=== PATIENT | male | born 1955 | race American Indian/Alaskan Native ===

== ENCOUNTER 2017-05-05 13:31 | Emergency (ER) | payer OTHER ==
[2017-05-05] MEDS ORDERED: NACL 0.9% 1000 ML 1,000 ML ONE (14:00)
[2017-05-05] MEDS ORDERED: NACL 0.9% 1000 ML 2,000 ML IV ONE (14:02)
[2017-05-05 14:16] LABS: Mean Corpuscular HGB Conc 29 % (32-34); Mean Corpuscular Volume 88 fl (84-94); Platelet Count 199 K/mm3 (140-440); Red Blood Count 4.23 M/mm3 (3.65-5.03)
[2017-05-05 14:19] LABS: Hematocrit 37.2 % (35.5-45.6); Hemoglobin 10.8 gm/dl (11.8-15.2); Mean Corpuscular Hemoglobin 26 pg (28-32)
[2017-05-05 14:26] LABS: INR 1.45 (0.87-1.13)
[2017-05-05 14:27] LABS: Partial Thromboplastin Time 49.2 Sec. (24.2-36.6)
[2017-05-05] MEDS: ADRENALIN 8 MG in NACL 0.9% 250ML 242 ML IV SCH ×4 (14:28→15:14)
[2017-05-05] MEDS ORDERED: SODIUM BICARBONATE IV NR (14:34)
[2017-05-05] MEDS ORDERED: NACL 0.9% 1000 ML 1,000 ML IV ONE (14:34)
[2017-05-05 14:42] LABS: Creatine Kinase MB 1.5 ng/mL (0.0-4.0)
[2017-05-05 14:43] LABS: Albumin 2.6 g/dL (3.9-5); Calcium 9.6 mg/dL (8.4-10.2)
[2017-05-05 15:10] LABS: Basophils % (Manual) 0 % (0.0-1.8); Eosinophils % (Manual) 0 % (0.0-4.3); Total Cells Counted 100
[2017-05-05 15:11] LABS: Anisocytosis 1+; Hypochromasia 1+
[2017-05-05 15:12] LABS: Target Cells Few
[2017-05-05 15:18] LABS: Chol/HDL Ratio 4.52 %
[2017-05-05] MEDS ORDERED: ASPIRIN PR ONE (15:33)
--- NOTE | 2017-05-05 15:33 | Emergency Department Report ---
HPI - General Chief Complaint: Cardiac Arrest/CPR Time Seen by Provider: 05/05/17 14:02 - HPI HPI: The patient's is a 62-year-old male with a history of heart disease and pacemaker placement, who presents via EMS in cardiac arrest. Per EMS and family members, the patient was witnessed experiencing a syncopal episode. On EMS arrival the patient was found unresponsive in cardiac arrest, with nausea and rhythm. He received multiple rounds of ACLS medications and CPR in route to the ED. ED Review of Systems ROS: Stated complaint: CA Other details as noted in HPI Comment: Unobtainable due to pts medical conditions (patient unresponsive) Physical Exam - Physical Exam Physical Exam: Physical Exam: General: well-nourished, well-developed Head: Normocephalic, atraumatic Eyes: Pupils were fixed and dilated, unresponsive to light ENT: no tracheal deviation Neck: no appreciable carotid bruit or thrill Respiratory: Breath sounds equal with bagging/assisted ventilations Cardio: No distal pulses, extremities cold to touch Abdomen: soft abdomen, no obvious distention, no epigastric breath sounds with assisted ventilation Musc: No pitting edema Skin: No rash Neuro: Patient unresponsive to verbal or painful stimuli, no abnormal tonicity or posturing - Central Line Placement Right Femoral Consent Obtained: emergent situation Time Out Performed: Yes (1929) Patient Placed on Monitor/Pulse Ox: Yes MD Prep: mask, gown, gloves Central Line Prep: Chlorhexidine scrub Local Anesthesia Used: Lidocaine 2% Amount of Anesthesia Used (mls): 5 Ultrasound Used for Placement: Yes Central Line Lumen Inserted: triple Bloods Obtained for Lab: No Central Line Position: good blood return, all ports aspirated, flus, sutured in place with 2-0 Dressing Applied: Tegaderm Patient Tolerated Procedure: well, no complications Complications: none - Intubation Time Out Performed: No (emergent situation) Sedative: Etomidate Mg Given: 20 Paralytic: Succinylcholine Mg Given: 100 Laryngoscope: Kyaw Size: 4 ET Tube Size: 7.5 Tube Secured Depth (cm): 22 Tube Secured Location: teeth Tube Placement Confirmation: visualized tube passing t, equal breath sounds bilat, no breath sounds over epi, confirmation by capnometr Patient Tolerated Procedure: well, no complications Intubation Complications: none ED Medical Decision Making - Lab Data Result diagrams: 05/05/17 13:55 05/05/17 17:06 - Medical Decision Making The patient was seen and examined by myself. The patient is placed on a cardiac monitor technician and continuous pulse ox. On initial evaluation, the patient was found to be unresponsive in cardiac arrest. Initial monitor rhythm reveals asystole/PEA. IV access is established and the patient is given epinephrine and sodium bicarbonate. After multiple rounds of CPR and ACLS medications, the patient regained spontaneous circulation. EKG is obtained and reveals irregularly irregular narrow QRS complex rhythm. The patient experiences bradycardia and recurrence of cardiac arrest. The patient was placed on a epinephrine drip and a right femoral central line was placed. Multiple bedside assessments were performed to assess patient responsiveness to epinephrine drip. Lab results exhibited elevated creatinine 1.7, mildly elevated troponin of 0.054, and low pH of 7.08. CT scan the head is negative for acute intracranial hemorrhage or other acute process. The on-call hospitalist service was contacted. They agreed to admit the patient for further treatment and close monitoring. The ED admit order was placed. The patient was admitted in critical condition. Critical Care Time: Yes Critical care time in (mins) excluding proc time.: 35 Critical care attestation.: Due to the critical nature of this patients presentation, which necessitated multiple bedside assessments, manipulation and supportive measures to prevent further life threatening deterioration, I would like to bill for a total of 35 minutes of critical care time. This was exclusive of any separately billable procedures. Critical Care Time: 35 min ED Disposition Clinical Impression: Cardiac arrest, Acidosis, metabolic, Dehydration, WILY (acute kidney injury) Disposition: 09 OP ADMIT IP TO THIS HOSP Is pt being admited?: Yes Does the pt Need Aspirin: Yes Condition: Critical Referrals: PRIMARY CARE, [Primary Care Provider] - 3-5 Days Time of Disposition: 15:29
[2017-05-05 16:00] LABS: Bilirubin,Urine NEG (Negative); Blood,Urine NEG (Negative); Color,Urine Blue (Yellow); Mucus,Urine 3+ /HPF; Nitrite,Urine NEG (Negative); Protein,Urine <15 mg/dL mg/dL (Negative); Sperm,Urine 3+ /HPF (NP); Urobilinogen,Urine < 2.0 mg/dL (<2.0)
[2017-05-05 16:05] LABS: Amphetamine Screen,Urine PRESUMPTIVE NEGATIVE; Benzodiazepines Screen,Urine PRESUMPTIVE NEGATIVE; Cannabinoid Screen,Urine PRESUMPTIVE NEGATIVE; Cocaine Screen,Urine PRESUMPTIVE NEGATIVE; Methadone Screen,Urine PRESUMPTIVE NEGATIVE; Opiate Screen,Urine PRESUMPTIVE NEGATIVE
[2017-05-05] MEDS ORDERED: AMIDATE IV ONE ×2 (16:05→18:00)
[2017-05-05] MEDS ORDERED: QUELICIN IV ONE (16:05)
[2017-05-05] MEDS ORDERED: MILK OF MAGNESIA PO PRN (17:01)
[2017-05-05] MEDS ORDERED: PROVENTIL IH PRN (17:01)
[2017-05-05] MEDS ORDERED: ALUM-MAG HYDROX-SIMETH 200-200-20MG/5ML PO PRN (17:01)
[2017-05-05] MEDS ORDERED: DULCOLAX PR PRN (17:01)
[2017-05-05] MEDS ORDERED: SODIUM CHLORIDE FLUSH SYRINGE 10 ML IV PRN (17:06)
--- NOTE | 2017-05-05 17:08 | History and Physical Report ---
History of Present Illness Chief complaint: Unresponsive History of present illness: 62 Yo Male with CHF, CVA, Nicotine Dependence presents to ED for evaluation. Pt unresponsive and unable to provide history. Pt history taken from ED staff, and Pt daughter who is an employee at [employer]. As per daughter, pt was in his usual state of health until today. The patient experienced a witnessed syncopal episode as per family. Pt was unarousable. EMS was notified, and upon arrival the patient was found to be unresponsive and in cardiac arrest. Pt treated IAW ACLS protocol and was intubated and placed on vent support, and transported to [facility] for further care. Pt seen and evaluated in ED and subsequently experienced another episode of cardiac arrest, and was again treated IAW ACLS protocol, with return of perfusing rhythm. Pt started on pressor support, cardiology consulted. Pt admitted to ICU. Past History Past Medical History: heart failure, stroke, other (nicotine dependence) Past Surgical History: Other (ICD placement. ) Social history: , lives with family, smoking. denies: alcohol abuse, prescription drug abuse Family history: CAD, hypertension Medications and Allergies Allergies Allergy/AdvReac Type Severity Reaction Status Date / Time No Known Allergies Allergy Unverified 05/05/17 15:41 Active Meds: Active Medications Al Hydrox/Mg Hydrox/Simethicone (Alum-Mag Hydrox-Simeth 213-585-64tq/5ml) 30 ml PO Q4H PRN PRN Reason: Indigestion Albuterol (Proventil) 2.5 mg IH Q3HRT PRN PRN Reason: Shortness Of Breath Bisacodyl (Dulcolax) 10 mg [place] QDAY PRN PRN Reason: constipation unrelieved by MOM Epinephrine 8 mg/ Sodium (Chloride) 250 mls @ 3.75 mls/hr IV TITR SANDRA; 2 MCG/ MIN PRN Reason: Protocol Last Admin: 05/05/17 15:14 Dose: 6 mcg/min, 11.25 mls/hr Magnesium Hydroxide (Milk Of Magnesia) 30 ml PO Q4H PRN PRN Reason: Constipation Sodium Chloride (Sodium Chloride Flush Syringe 10 Ml) 10 ml IV PRN PRN PRN Reason: LINE FLUSH Review of Systems ROS unobtainable: due to mental status Exam - Constitutional Vitals: Temp Pulse Resp BP Pulse Ox 72 114/78 100 05/05/17 13:49 01/04/18 13:49 05/05/17 13:49 General appearance: Present: severe distress - EENT Eyes: Present: miosis - Neck Neck: Present: supple, normal ROM - Respiratory Respiratory effort: labored Respiratory: bilateral: diminished - Cardiovascular Heart Sounds: Present: S1 & S2. Absent: rub, click - Extremities Extremities: pulses symmetrical, No edema Extremity abnormal: edema Peripheral Pulses: within normal limits - Abdominal General gastrointestinal: Present: soft, non-tender, non-distended, normal bowel sounds Male genitourinary: Present: normal - Integumentary Integumentary: Present: clear, dry, clammy, decreased turgor - Musculoskeletal Musculoskeletal: generalized weakness - Psychiatric Psychiatric: no intact judgment & insight, no memory intact - Neurologic Neurologic: no gait normal Results - Labs CBC & Chem 7: 05/05/17 13:55 05/05/17 17:06 Labs: Abnormal lab results 05/05/17 05/05/17 05/05/17 Range/Units 13:55 13:55 13:55 Hgb 10.8 L (11.8-15.2) gm/dl MCH 26 L (28-32) pg MCHC 29 L (32-34) % RDW 22.0 H (13.2-15.2) % Seg Neuts % (Manual) 29.0 L (40.0-70.0) % Lymphocytes % (Manual) 62.0 H (13.4-35.0) % Monocytes % (Manual) 9.0 H (0.0-7.3) % Seg Neutrophils # Man 1.5 L (1.8-7.7) K/mm3 PT 18.4 H (12.2-14.9) Sec. INR 1.45 H (0.87-1.13) APTT 49.2 H (24.2-36.6) Sec. POC ABG pH (7.35-7.45) POC ABG pCO2 (35-45) POC ABG pO2 (80-105) Carbon Dioxide 19 L (22-30) mmol/L BUN 31 H (9-20) mg/dL Creatinine 1.7 H (0.8-1.5) mg/dL Glucose 135 H (75-100) mg/dL Lactic Acid (0.7-2.0) mmol/L AST 42 H (5-40) units/L Alkaline Phosphatase 137 H (35-129) units/L Troponin T 0.054 H (0.00-0.029) ng/mL Albumin 2.6 L (3.9-5) g/dL HDL Cholesterol 23 L (40-59) mg/dL Urine WBC (Auto) (0.0-6.0) /HPF 05/05/17 05/05/17 05/05/17 Range/Units 14:24 15:32 15:41 Hgb (11.8-15.2) gm/dl MCH (28-32) pg MCHC (32-34) % RDW (13.2-15.2) % Seg Neuts % (Manual) (40.0-70.0) % Lymphocytes % (Manual) (13.4-35.0) % Monocytes % (Manual) (0.0-7.3) % Seg Neutrophils # Man (1.8-7.7) K/mm3 PT (12.2-14.9) Sec. INR (0.87-1.13) APTT (24.2-36.6) Sec. POC ABG pH 7.080 L (7.35-7.45) POC ABG pCO2 47.2 H (35-45) POC ABG pO2 178 H (80-105) Carbon Dioxide (22-30) mmol/L BUN (9-20) mg/dL Creatinine (0.8-1.5) mg/dL Glucose (75-100) mg/dL Lactic Acid 11.10 H* (0.7-2.0) mmol/L AST (5-40) units/L Alkaline Phosphatase (35-129) units/L Troponin T (0.00-0.029) ng/mL Albumin (3.9-5) g/dL HDL Cholesterol (40-59) mg/dL Urine WBC (Auto) 36.0 H (0.0-6.0) /HPF Assessment and Plan - Patient Problems (1) Acute hypoxemic respiratory failure Current Visit: Yes Status: Acute Plan to address problem: Admit to ICU: Pt intubated, placed on vent support, wean vent as tolerated, supplemental oxygen, nebulizer therapy, daily SBT, sedation holiday daily, pulmonary toilet, pulmonary consulted. The high probability of a clinically significant, sudden or life threatening deterioration of the [cardiac, renal, pulmonary] system(s) required my full and direct attention, intervention and personal management. The aggregate critical care time was [65] minutes. This time is in addition to time spent performing reported procedures but includes the following: [x] Data Review and interpretation [x] Patient assessment and monitoring of vital signs [x] Documentation [x] Medication orders and management (2) Lactic acidosis Current Visit: Yes Status: Acute Plan to address problem: IVF resuscitation, supportive care, (3) ARF (acute renal failure) Current Visit: Yes Status: Acute Plan to address problem: monitor uop q shift, IVF resuscitation, repeat bmp, consider urine electrolytes if decreasing uop, or increasing creatnine. (4) CHF (congestive heart failure) Current Visit: Yes Status: Acute Qualifiers: Congestive heart failure type: systolic Congestive heart failure chronicity : acute on chronic Qualified Code(s): I50.23 - Acute on chronic systolic ( congestive) heart failure Plan to address problem: Cardiology consulted, Echo, CT chest, serial cardiac enzymes, ekg, telemetry monitoring, continue ionotropic support. (5) Cardiac arrest Current Visit: Yes Status: Acute Plan to address problem: S/P treatment with ACLS protocol, iv pressor support, (6) Anoxic brain damage syndrome Current Visit: Yes Status: Suspected Plan to address problem: CT head if/when medically more stable, neuro checks, supportive care, Apnea test if no improvement, and unable to wean from vent. (7) DVT prophylaxis Current Visit: Yes Status: Acute
[2017-05-05 17:33] LABS: Creatine Kinase MB 5.6 ng/mL (0.0-4.0)
[2017-05-05 17:34] LABS: BUN/Creatinine Ratio 19; Blood Urea Nitrogen 32 mg/dL (9-20); Calcium 8.7 mg/dL (8.4-10.2); Hemolysis Index 37
--- NOTE | 2017-05-05 17:58 | Cat Scan Report ---
FINAL REPORT EXAM: CT HEAD/BRAIN WO CON HISTORY: syncope, AMS TECHNIQUE: Standard unenhanced CT of the head at 5.0 millimeter axial increments PRIORS: None. FINDINGS: The ventricular system is normal in size and configuration. There is no evidence for parenchymal volume loss. Low-density in the posterior right frontal lobe is noted suggesting a prior area of infarct or small vessel ischemic changes. Smaller areas of low-density in the posterior right periventricular white matter are likely small vessel ischemic changes. There is no evidence for mass lesion, mass effect, midline shift, acute intracranial hemorrhage, or acute ischemia/ infarction. Visualized paranasal sinuses are clear. IMPRESSION: Small vessel ischemic changes. One of these areas could also represent a prior remote infarct in the posterior right frontal lobe. No acute intracranial process noted.
[2017-05-05] MEDS ORDERED: ADRENALIN ONE (18:00)
[2017-05-05] MEDS ORDERED: QUELICIN ONE (18:00)
[2017-05-05] MEDS ORDERED: SODIUM BICARBONATE IV ONE (18:00)
[2017-05-05] MEDS ORDERED: D50W (25GM) Syringe IV ONE (18:00)
[2017-05-05] MEDS ORDERED: MAGNESIUM SULFATE ONE (18:00)
[2017-05-05] MEDS ORDERED: CALCIUM CHLORIDE IV ONE (18:00)
--- NOTE | 2017-05-05 18:05 | Cat Scan Report ---
FINAL REPORT EXAM: CT CERVICAL SPINE WO CON HISTORY: syncope TECHNIQUE: Standard CT cervical spine obtained at 2.5 millimeter axial increments. Coronal and sagittal reconstruction was also performed. PRIORS: None. FINDINGS: The vertebral bodies are intact. There is no evidence for acute fracture. There is no evidence for paravertebral soft tissue swelling. Alignment is maintained. Mild degenerative disc changes to from C5 through C7 are noted. An endotracheal tube and nasogastric tube are located in the trachea and esophagus, respectively. IMPRESSION: No acute bony abnormality of the cervical spine. An endotracheal tube and nasogastric tube are located in the trachea and esophagus, respectively.
--- NOTE | 2017-05-05 18:19 | Cat Scan Report ---
FINAL REPORT EXAM: CT ANGIO CHEST HISTORY: respiratory failure TECHNIQUE: Enhanced CT of the chest at 2.5 mm axial intervals following a pulmonary embolism protocol. Coronal and sagittal imaging were also obtained. Coronal oblique MIP projections were obtained. Contrast: intravenous contrast given PRIORS: None. FINDINGS: An endotracheal tube terminates at the level of aortic arch. A nasogastric tube terminates within the stomach. A single lead left subclavian pacemaker terminates in the right ventricle. There is no evidence for pulmonary embolism in the main pulmonary artery, right and left pulmonary arteries or their major distributions. However, CT does not exclude distal pulmonary emboli. Extensive ground-glass opacities are noted diffusely throughout the upper lobes. There is a small patchy alveolar infiltrate in the right lower lobe posterior medially. Linear atelectasis in the left base medially is present. There is a bulla in the right apex consistent with underlying emphysema. No pneumothorax is seen. There is no evidence for mediastinal, hilar, or axillary adenopathy. There is global markedly enlargement of the heart. Pulmonary arteries are prominent bilaterally with the main pulmonary trunk measuring 3.9 cm in diameter. The aorta is upper limits normal in diameter with the ascending aorta measuring 4.0 x 4.0 cm. The descending thoracic aorta measures 3.6 x 3.6 cm. Images through the lung bases include the upper abdomen which show no abnormalities of the visualized abdominal viscera. Bony structures demonstrate acute rib fractures involving the anterior right 4th and 5th ribs. There are anterior left 3rd through 5th rib fractures. IMPRESSION: 1. no evidence for pulmonary embolism. 2. Marked global cardiomegaly. Mildly enlarged main pulmonary arteries which can be seen with pulmonary arterial hypertension. 3. Extensive ground-glass opacities throughout the upper lobes, likely inflammatory 4. Patchy infiltrates and atelectasis identified in the right lower lobe and left lower lobe 5. Numerous acute rib fractures involving multiple upper anterior ribs bilaterally.
--- NOTE | 2017-05-05 18:21 | Consultation ---
History of Present Illness Consult date: 05/05/17 Consult reason: cardiac arrest History of present illness: 62 year old male presenting in PEA cardiac arrest. BLS and ACLS started within 5 minutes and lasted for 40 minutes before return to spontaneous circulation. Patient had another PEA cardiac arrest in the ER and was placed on epinephrine drip. I have called and spoke with his family. Unfortunately they do not know anything about his heart or overall medical conditions except that he has gout and a pacemaker. Patient is currently intubated and mechanically ventilated. Tele is showing SR. Patient has a single chamber AICD noted on CXR. UDS is positive for phencyclidine. There is evidence of severe metabolic acidosis with a lactic acid of 11. ECG on presentation showing afib with IVCD and non- specific diffuse ST-T wave abnormality Past History Past Medical History: heart failure, stroke Past Surgical History: No surgical history Social history: smoking Family history: CAD Medications and Allergies Allergies Allergy/AdvReac Type Severity Reaction Status Date / Time No Known Allergies Allergy Unverified 05/05/17 15:41 Active Meds: Active Medications Al Hydrox/Mg Hydrox/Simethicone (Alum-Mag Hydrox-Simeth [id number]/5ml) 30 ml PO Q4H PRN PRN Reason: Indigestion Albuterol (Proventil) 2.5 mg IH Q3HRT PRN PRN Reason: Shortness Of Breath Bisacodyl (Dulcolax) 10 mg [place] QDAY PRN PRN Reason: constipation unrelieved by MOM Epinephrine 8 mg/ Sodium (Chloride) 250 mls @ 3.75 mls/hr IV TITR SANDRA; 2 MCG/ MIN PRN Reason: Protocol Last Admin: 05/05/17 15:14 Dose: 6 mcg/min, 11.25 mls/hr Magnesium Hydroxide (Milk Of Magnesia) 30 ml PO Q4H PRN PRN Reason: Constipation Sodium Chloride (Sodium Chloride Flush Syringe 10 Ml) 10 ml IV PRN PRN PRN Reason: LINE FLUSH Review of Systems ROS unobtainable: due to endotracheal tube, due to mental status Physical Examination Vital Signs Pulse BP Pulse Ox 72 114/78 100 05/05/17 13:49 05/05/17 13:49 05/05/17 13:49 General appearance: malodorous HEENT: Positive: Pallor Neck: Positive: neck supple. Negative: JVD/HJR Cardiac: Positive: Reg Rate and Rhythm, Systolic Murmur Lungs: Positive: Ventilated Respirations Abdomen: Positive: Soft Extremities: Absent: edema Results 05/05/17 13:55 05/05/17 17:06 Cardiac Enzymes 05/05/17 05/05/17 Range/Units 13:55 17:06 AST 42 H (5-40) units/L CK-MB (CK-2) 1.5 5.6 H (0.0-4.0) ng/mL Coagulation 05/05/17 Range/Units 13:55 PT 18.4 H (12.2-14.9) Sec. INR 1.45 H (0.87-1.13) APTT 49.2 H (24.2-36.6) Sec. Lipids 05/05/17 Range/Units 13:55 Triglycerides 89 (2-149) mg/dL Cholesterol 104 (50-199) mg/dL HDL Cholesterol 23 L (40-59) mg/dL Cholesterol/HDL Ratio 4.52 % CBC 05/05/17 Range/Units 13:55 WBC 5.2 (4.5-11.0) K/mm3 RBC 4.23 (3.65-5.03) M/mm3 Hgb 10.8 L (11.8-15.2) gm/dl Hct 37.2 (35.5-45.6) % Plt Count 199 (140-440) K/mm3 Comprehensive Metabolic Panel 05/05/17 05/05/17 Range/Units 13:55 17:06 Sodium 144 146 H (137-145) mmol/L Potassium 4.4 3.9 (3.6-5.0) mmol/L Chloride 101.1 101.7 (98-107) mmol/L Carbon Dioxide 19 L 15 L (22-30) mmol/L BUN 31 H 32 H (9-20) mg/dL Creatinine 1.7 H 1.7 H (0.8-1.5) mg/dL Glucose 135 H 56 L (75-100) mg/dL Calcium 9.6 8.7 (8.4-10.2) mg/dL AST 42 H (5-40) units/L ALT 26 (7-56) units/L Alkaline Phosphatase 137 H (35-129) units/L Total Protein 7.0 (6.3-8.2) g/dL Albumin 2.6 L (3.9-5) g/dL - EKG Interpretation EKG: sinus rhythm Assessment and Plan PEA cardiac arrest x 2 Anoxic brain injury Severe metabolic acidosis Acute renal failure Cardiomegaly on CXR Single chamber AICD Phencyclidine in urine drug screen Remote history of CVA per family History of gout Nicotine dependence Recommendations Supportive care for the time being Prognosis is guarded and very poor Will try to interrogate AICD once we find networking technician (family not aware what networking technician is the AICD) Echocardiogram
--- NOTE | 2017-05-05 18:53 | XRay Report ---
FINAL REPORT EXAM: XR CHEST 1V AP HISTORY: ET tube placement doing cpr 1405 TECHNIQUE: AP chest x-ray Comparison: CT angiogram performed 1732 hours FINDINGS: Endotracheal tube tip projects well above the brent. Nasogastric tube has been removed. There is marked enlargement of the heart. Known multiple rib fractures are not well seen by plain film. There is an AICD present. There is no definite pneumothorax. IMPRESSION: Marked cardiac enlargement. The patient is intubated with endotracheal tube tip well above the brent. Ill-defined infiltrates and rib fracture seen on CTA chest earlier today are not as well seen by plain film. No pneumothorax. AICD.
[2017-05-05 20:47] LABS: Basophils % (Auto) 0.4 % (0.0-1.8); Eosinophils % (Auto) 0.2 % (0.0-4.3); Hematocrit 34.8 % (35.5-45.6); Hemoglobin 10.8 gm/dl (11.8-15.2); Lymphocytes # (Auto) 0.8 K/mm3 (1.2-5.4); Lymphocytes % (Auto) 9.6 % (13.4-35.0); Mean Corpuscular HGB Conc 31 % (32-34); Mean Corpuscular Hemoglobin 26 pg (28-32); Mean Corpuscular Volume 84 fl (84-94); Monocytes # (Auto) 0.3 K/mm3 (0.0-0.8); Monocytes % (Auto) 3.3 % (0.0-7.3); Platelet Count 264 K/mm3 (140-440); Red Blood Count 4.14 M/mm3 (3.65-5.03)
[2017-05-05 20:48] LABS: Red Cell Distribution Width 21.5 % (13.2-15.2)
[2017-05-05 21:07] LABS: Creatine Kinase MB 26.8 ng/mL (0.0-4.0)
[2017-05-06] MEDS ORDERED: ADRENALIN ONE (02:20)
[2017-05-06] MEDS ORDERED: SODIUM BICARBONATE IV ONE (02:20)
[2017-05-06] MEDS ORDERED: ATROPINE ONE (02:20)
[2017-05-06 03:15] VITALS: BP 64/37
--- NOTE | 2017-05-06 03:30 | Event Note ---
Date: 05/06/17 CODE TJ called Initial rhythm PDA, ACLS protocol was initiated There was no ROSC, time of 0240 The family was notified
== END 2017-05-06 10:38 ==
LOC: ED 13:31 → CC1 17:01 → UNDOADMIN 17:01 → ED 05-06 10:38
DX: I46.9 Cardiac arrest, cause unspecified (principal); E86.0 Dehydration; E87.2 Acidosis; N17.9 Acute kidney failure, unspecified
CPT/HCPCS: 31500; 36415; 36556; 70450; 71045; 71275; 72125; 80048; 80053; 80061; 80307; 81001; 82140; 82550; 82553; 82803; 82962; 83880; 84484; 85007; 85025; 85610; 85730; 86850; 86900; 86901; 87205; 92950; 93005; 93010; 96360; 99291; G0480; J0171; J0330; J0461; J3475; J7030; J7050; Q9967; 80320; 94002